=== PATIENT | male | born 1970 | race Caucasian/White ===

== ENCOUNTER → 2016-11-29 | Outpatient (CLI) | payer OTHER ==
[~2016-11-29] MED LIST: ALDACTONE25 MG PO; ATARAX25 MG PO; AUGMENTIN 875875 MG PO; BENADRYL ALLERG25 M5 PO; BENADRYL50 MG PO; BUMETANIDE1 MG PO; CARVEDILOL3.125 MG PO; CIPRO500 MG PO; COREG3.125 MG PO; DIGOX0.125 MG PO; DIGOX0.25 MG PO; FLOMAX0.4 MG PO; FLONASE ALLERG9.9 ML NS; FUROSEMIDE40 MG PO; HYDROCODONE BIT1 T11 PO; KENALOG0.1% TP; LIDEX0.05% T; LISINOPRIL2.5 MG PO; LISINOPRIL5 MG PO; MEDROL DOSEPAK4 MG PO; Motrin,Rufen800 MG PO; OMEPRAZOLE MAGN20 MG PO; PREDNICOT20 MG PO; PREDNISONE10 MG PO; PRISTIQ50 MG PO; VICO10300 PO; VISTARIL25 M1 PO; ZOFRAN ODT4 MG SL
== END | disposition home or self-care (01) ==
LOC: US 11-27 13:30
DX: M79.672 Pain in left foot (principal); I42.8 Other cardiomyopathies; E66.9 Obesity, unspecified; M79.661 Pain in right lower leg; M79.662 Pain in left lower leg; M79.671 Pain in right foot

== ENCOUNTER 2017-10-04 07:18 | Inpatient (IN) | payer OTHER, MEDICAID ==
[2017-10-04] VITALS (8 sets, daily range): BP systolic 125–158; BP diastolic 65–94
[~2017-10-04] VITALS: Ht 165.1 cm; Wt 146.3 kg
--- NOTE | ~2017-10-04 | PR ---
[place], [place] PROGRESS NOTE NAME: CAPO CARRANZA UNIT #: [id number] ROOM: 531 DOCTOR: BROOKE LEO,JULIET BIRTHDATE: [birth year] DOS: 10/07/2017 REASON FOR VISIT: CHF. HISTORY OF PRESENT ILLNESS: The patient is feeling better. He wanted to go home. Breathing is much better. He is ambulating without much shortness of breath. No PND, no orthopnea. No chest pain, no dizziness. He is tolerating Bumex well. REVIEW OF SYSTEMS: Review of the 8 systems negative except as mentioned above. RHYTHM STRIPS: The patient was ventricular pacing on the monitor. PHYSICAL EXAMINATION: VITAL SIGNS: Blood pressure 124/77, pulse 77, respiratory rate is 20. Weight 146.2 kilos. GENERAL: Alert, comfortable, in no acute distress. HEENT: Pupils are round and equal. No jaundice. NECK: Supple, no distended neck veins, no carotid bruit. CHEST: Symmetrical, nontender. ICD site is unremarkable. LUNGS: A few scattered rhonchi, diminished at bases. HEART: Regular rhythm, no S3. Grade 1/6 systolic murmur. ABDOMEN: Obese, nontender. Bowel sounds normal. EXTREMITIES: Showed trace to 1+ edema. Distal pulses are palpable. SKIN: Warm and dry. No cyanosis, no clubbing. RECTAL: Deferred. GENITOURINARY: Deferred. Medications reviewed and the labs reviewed. IMPRESSION: 1. Acute on chronic systolic heart failure, the patient is improving. 2. Status post biventricular ICD implant in 2014. 3. Hypertension, stable. 4. Morbid obesity. RECOMMENDATIONS: 1. Continue current medications including Coreg, Cozaar, and Aldactone. 2. Change her Bumex to p.o. 1 mg twice a day tomorrow. 3. The patient would like to go home today. If he is being discharged today, change Bumex to p.o. 1 mg twice a day today. 4. Follow up with [facility] per his request in 1-2 weeks, consider referring him to advanced heart failure, Dr. Das. There is no family at bedside. [place], [place] PROGRESS NOTE NAME: CAPO CARRANZA UNIT #: [id number] ROOM: 531 DOCTOR: JULIET COX MD BIRTHDATE: [birth year] JULIET COX MD CM:RILEY [id number] JULIET COX MD 10/08/176 interface
[2017-10-04 07:59] LABS: HEMATOCRIT 41.3 % (42.0-52.0); HEMOGLOBIN 13.6 g/dl (14.0-18.0); MEAN CORPUSCULAR HGB CONC 32.9 g/dl (33.0-37.0); MEAN PLATELET VOLUME 9.6 fl (9.6-12.3); PLATELET COUNT AUTOMATED 201 10*3/uL (130-400); RED BLOOD COUNT 4.54 10*6/uL (4.50-5.90); RED CELL DISTRI WIDTH 13.2 % (0-14.5); WHITE BLOOD COUNT 12.6 10*3/uL (4.8-10.8)
[2017-10-04 08:17] LABS: BASOPHILS 1 % (0-1); PLATELET SUFFICIENCY NORMAL (NORMAL); TOTAL CELLS COUNTED 100 #CELLS
[2017-10-04 08:18] LABS: ALBUMIN 3.3 gm/dl (3.1-4.5); ALKALINE PHOSPHATASE 90 U/L (45-117); BUN 12 mg/dl (7-24); CHLORIDE 105 mmol/L (98-107); CREATININE 0.91 mg/dL (0.70-1.30); POTASSIUM 4.5 mmol/L (3.5-5.1); SGOT/AST 65 IU/L (3-35); SGPT/ALT 39 U/L (12-78); SODIUM 138 mmol/L (136-145); TOTAL PROTEIN 7.1 gm/dL (6.4-8.2)
[2017-10-04 08:26] LABS: TROPONIN I 0.056 ng/ml (<0.045)
[2017-10-04] MEDS ORDERED: LOPID600 M1 PO (10:51)
[2017-10-04] MEDS ORDERED: CITALOPRAM20 MG PO (10:51)
[2017-10-04] MEDS ORDERED: ATIVAN0.5 MG PO (10:58)
[2017-10-05] VITALS: BP 112/80
[2017-10-05 06:46] LABS: HEMATOCRIT 42.3 % (42.0-52.0); HEMOGLOBIN 13.8 g/dl (14.0-18.0); MEAN CORPUSCULAR HGB 29.7 pg (27.0-31.0); MEAN CORPUSCULAR HGB CONC 32.6 g/dl (33.0-37.0); MEAN PLATELET VOLUME 9.6 fl (9.6-12.3); PLATELET COUNT AUTOMATED 231 10*3/uL (130-400); RED BLOOD COUNT 4.65 10*6/uL (4.50-5.90); RED CELL DISTRI WIDTH 13.4 % (0-14.5); WHITE BLOOD COUNT 15.4 10*3/uL (4.8-10.8)
[2017-10-05 07:09] LABS: PLATELET SUFFICIENCY NORMAL (NORMAL); TOTAL CELLS COUNTED 100 #CELLS
[2017-10-05 07:11] LABS: ALBUMIN 3.5 gm/dl (3.1-4.5); BUN 16 mg/dl (7-24); CHLORIDE 98 mmol/L (98-107); CHOLESTEROL 122 mg/dL (<200); CREATININE 1.11 mg/dL (0.70-1.30); HDL CHOLESTEROL 26 mg/dl (40-60); LDL CHOLESTEROL 37 mg/dL (9-159); PHOSPHOROUS 4.3 mg/dL (2.5-4.9); POTASSIUM 3.9 mmol/L (3.5-5.1); SGOT/AST 37 IU/L (3-35); SGPT/ALT 36 U/L (12-78); SODIUM 137 mmol/L (136-145); TRIGLYCERIDES 295 mg/dl (<150); VLDL CHOLESTEROL 59 mg/dL (6-40)
[2017-10-05 07:21] LABS: ALKALINE PHOSPHATASE 76 U/L (45-117); FREE T4 1.06 ng/dl (0.76-1.46); TOTAL PROTEIN 7.2 gm/dL (6.4-8.2)
[2017-10-05 08:00] VITALS: BP 122/62
[2017-10-05 08:17] LABS: VITAMIN D, 25-HYDROXY 15.9 ng/mL (30-100)
[2017-10-05 12:00] VITALS: BP 118/72
[2017-10-05 16:00] VITALS: BP 133/65
[2017-10-05 20:00] VITALS: BP 111/43
[2017-10-06] VITALS: BP 109/55
[2017-10-06 06:02] LABS: HEMATOCRIT 40.5 % (42.0-52.0); HEMOGLOBIN 13.6 g/dl (14.0-18.0); MEAN CELL VOLUME 90.2 fl (80.0-94.0); MEAN CORPUSCULAR HGB 30.3 pg (27.0-31.0); MEAN CORPUSCULAR HGB CONC 33.6 g/dl (33.0-37.0); MEAN PLATELET VOLUME 9.5 fl (9.6-12.3); PLATELET COUNT AUTOMATED 225 10*3/uL (130-400); RED BLOOD COUNT 4.49 10*6/uL (4.50-5.90); RED CELL DISTRI WIDTH 13.4 % (0-14.5); WHITE BLOOD COUNT 15.5 10*3/uL (4.8-10.8)
[2017-10-06 06:19] LABS: BUN 22 mg/dl (7-24); CHLORIDE 97 mmol/L (98-107); CREATININE 0.93 mg/dL (0.70-1.30); POTASSIUM 3.7 mmol/L (3.5-5.1); SODIUM 136 mmol/L (136-145)
[2017-10-06 06:28] LABS: BASOPHILS 1 % (0-1); PLATELET SUFFICIENCY NORMAL (NORMAL); TOTAL CELLS COUNTED 100 #CELLS
[2017-10-06 08:00] VITALS: BP 114/67
[2017-10-06 12:00] VITALS: BP 113/71
[2017-10-06 16:00] VITALS: BP 102/64
[2017-10-06 20:00] VITALS: BP 121/70
[2017-10-07] VITALS: BP 105/45
[2017-10-07 06:21] LABS: HEMATOCRIT 42.3 % (42.0-52.0); HEMOGLOBIN 13.9 g/dl (14.0-18.0); MEAN CELL VOLUME 92.2 fl (80.0-94.0); MEAN CORPUSCULAR HGB 30.3 pg (27.0-31.0); MEAN CORPUSCULAR HGB CONC 32.9 g/dl (33.0-37.0); MEAN PLATELET VOLUME 9.4 fl (9.6-12.3); PLATELET COUNT AUTOMATED 252 10*3/uL (130-400); RED BLOOD COUNT 4.59 10*6/uL (4.50-5.90); RED CELL DISTRI WIDTH 13.6 % (0-14.5); WHITE BLOOD COUNT 17.3 10*3/uL (4.8-10.8)
[2017-10-07 06:44] LABS: BUN 23 mg/dl (7-24); CHLORIDE 97 mmol/L (98-107); CREATININE 1.09 mg/dL (0.70-1.30); POTASSIUM 3.7 mmol/L (3.5-5.1); SODIUM 136 mmol/L (136-145)
[2017-10-07 07:11] LABS: ATYPICAL LYMPHS 1 % (0-0); PLATELET SUFFICIENCY NORMAL (NORMAL); TOTAL CELLS COUNTED 100 #CELLS
[2017-10-07 08:00] VITALS: BP 124/77
[2017-10-07 12:00] VITALS: BP 109/63
[2017-10-07] MEDS ORDERED: COZAAR100 MG PO (15:30)
[2017-10-07] MEDS ORDERED: BUMETANIDE1 MG PO (15:30)
[2017-10-07] MEDS ORDERED: ASPIRIN ADULT L81 M2 PO (15:30)
[2017-10-07] MEDS ORDERED: ALDACTONE25 MG PO (15:30)
[2017-10-07] MEDS ORDERED: CARVEDILOL25 MG PO (15:30)
[2017-10-07] MEDS ORDERED: ATORVASTATIN CA40 M1 PO (15:30)
[2017-10-07 16:00] VITALS: BP 105/58
== END 2017-10-07 16:49 | disposition home or self-care (01) | DRG 292 ==
LOC: ED 07:18 → EDHOLD 09:13 → 5E 09:13
PROVIDERS: Emergency Medicine; Registered Nurse; Student in an Organized Health Care Education/Training Program
DX: I11.0 Hypertensive heart disease with heart failure (principal); R65.10 Systemic inflammatory response syndrome (SIRS) of non-infectious origin without acute organ dysfunction; I42.9 Cardiomyopathy, unspecified; E66.01 Morbid (severe) obesity due to excess calories; Z68.43 Body mass index [BMI] 50.0-59.9, adult; F41.1 Generalized anxiety disorder; J44.9 Chronic obstructive pulmonary disease, unspecified; E78.2 Mixed hyperlipidemia; I34.0 Nonrheumatic mitral (valve) insufficiency; I50.23 Acute on chronic systolic (congestive) heart failure; M19.90 Unspecified osteoarthritis, unspecified site; K21.9 Gastro-esophageal reflux disease without esophagitis; Z95.810 Presence of automatic (implantable) cardiac defibrillator; Z88.8 Allergy status to other drugs, medicaments and biological substances; Z79.899 Other long term (current) drug therapy; Z80.9 Family history of malignant neoplasm, unspecified; Z84.1 Family history of disorders of kidney and ureter; Z82.49 Family history of ischemic heart disease and other diseases of the circulatory system

== ENCOUNTER 2018-04-26 07:06 | Emergency (ER) | payer OTHER, MEDICAID ==
[~2018-04-26] VITALS: Ht 165.1 cm; Wt 133.8 kg
[~2018-04-26 07:06] MED LIST changes: +ASPIRIN ADULT L81 M2 PO; +ATIVAN0.5 MG PO; +ATORVASTATIN CA40 M1 PO; +CARVEDILOL25 MG PO; +CITALOPRAM20 MG PO; +COZAAR100 MG PO; +LOPID600 M1 PO
[2018-04-26] MEDS ORDERED: Motrin,Rufen800 MG PO (08:42)
== END 2018-04-26 08:47 | disposition home or self-care (01) ==
LOC: ED 07:06
DX: S96.912A Strain of unspecified muscle and tendon at ankle and foot level, left foot, initial encounter (principal); S93.402A Sprain of unspecified ligament of left ankle, initial encounter; E66.01 Morbid (severe) obesity due to excess calories; I11.0 Hypertensive heart disease with heart failure; I50.20 Unspecified systolic (congestive) heart failure; J44.9 Chronic obstructive pulmonary disease, unspecified; M13.859 Other specified arthritis, unspecified hip; Z79.899 Other long term (current) drug therapy; Z88.8 Allergy status to other drugs, medicaments and biological substances; W22.8XXA Striking against or struck by other objects, initial encounter; Y93.89 Activity, other specified; Y92.89 Other specified places as the place of occurrence of the external cause; Y99.8 Other external cause status

== ENCOUNTER → 2019-01-29 | Outpatient (CLI) | payer OTHER, MEDICAID | END | disposition home or self-care (01) | LOC: RAD 08:23 | DX: R20.2 Paresthesia of skin (principal); M47.812 Spondylosis without myelopathy or radiculopathy, cervical region ==

== ENCOUNTER 2019-06-10 22:38 | Inpatient (IN) | payer OTHER, MEDICAID ==
[~2019-06-10] VITALS: Ht 167.6 cm; Wt 153.1 kg
[~2019-06-10 22:38] MED LIST changes: -CITALOPRAM20 MG PO; +CITALOPRAM40 MG PO
[2019-06-10 22:43] VITALS: BP 133/70
[2019-06-10 23:11] LABS: HEMATOCRIT 46.9 % (42.0-52.0); HEMOGLOBIN 15.1 g/dl (14.0-18.0); MEAN CELL VOLUME 90.9 fl (80.0-94.0); MEAN CORPUSCULAR HGB 29.3 pg (27.0-31.0); MEAN CORPUSCULAR HGB CONC 32.2 g/dl (33.0-37.0); MEAN PLATELET VOLUME 9.5 fl (9.6-12.3); PLATELET COUNT AUTOMATED 263 10*3/uL (130-400); RED BLOOD COUNT 5.16 10*6/uL (4.50-5.90); RED CELL DISTRI WIDTH 13.9 % (0-14.5); WHITE BLOOD COUNT 18.4 10*3/uL (4.8-10.8)
[2019-06-10 23:27] LABS: ALBUMIN 3.5 gm/dl (3.1-4.5); ALKALINE PHOSPHATASE 111 U/L (45-117); BUN 25 mg/dl (7-24); CHLORIDE 103 mmol/L (98-107); SGOT/AST 132 IU/L (3-35); SGPT/ALT 63 U/L (12-78); SODIUM 136 mmol/L (136-145); TOTAL PROTEIN 7.2 gm/dL (6.4-8.2)
[2019-06-10 23:30] LABS: TROPONIN I 0.051 ng/ml (<0.045)
[2019-06-10 23:31] VITALS: BP 120/68
[2019-06-10 23:31] LABS: PLATELET SUFFICIENCY NORMAL (NORMAL); POLYCHROMASIA SLIGHT; TOTAL CELLS COUNTED 100 #CELLS
[2019-06-11] VITALS (10 sets, daily range): BP systolic 100–146; BP diastolic 63–93
--- NOTE | 2019-06-11 | NUR ---
NOTED ON [employer] METEOROLOGICAL MAN THE PATIENTS HEART RATE WAS AT 42. THEN 36. THE MD MADE AWARE. THE PATIENT REMAINS AWAKE ALERT AND ORIENTED AT THE TIME DENIES ANY CHEST PAIN OR SOB. TERRIE DIXON RN. 0010 PT PLACED ON 3 LITERS NC DUE TO THE PATIENT DOZES OFF AND PULSE OX DROPS TO 87%. THE PATIENT STATES HE IS UNABLE TO TOLERATE THE NC STATES IT NAKES HIM ANXIOUS. AND TOOK IT OFF. TERRIE DIXON RN.
--- NOTE | 2019-06-11 00:20 | NUR ---
[employer] REP NOTIFIED DUE TO PT'S HEARTRATE DROPPING INTO THE 30'S DESPITE HAVING A PACEMAKER.---RICHARD DURAN RN
--- NOTE | 2019-06-11 00:27 | NUR ---
[employer]ENT[employer] PACER REP IS BEING NOTIFIED TO INTERROGATE THIS PT'S PACER---RICHARD DURAN RN
--- NOTE | 2019-06-11 00:54 | NUR ---
SCHOOL BUS INSPECTOR CONTACTED AND PROVIDED MEDICATION OF BUMEX AND ROCEPHIN.
--- NOTE | 2019-06-11 01:30 | NUR ---
A 49 YEAR OLD MALE admitted to ICCU, under the services of LOLLY Stone DO with a diagnosis of CHF. Chief complaint is VERTIGO AT HOME, DENIES SOB. Patient arrived via stretcher from ER. Monitor applied. Initial assessment completed. Vital signs taken and recorded. LOLLY STONE DO notified of admission to the unit. Orders received. See assessment for past medical history, medications and allergies. Patient and/or family oriented to unit. [facility] visitation policy reviewed. Clothing/patient valuable form completed. CHARLI GIRON
--- NOTE | 2019-06-11 01:44 | NUR ---
0130 DR ALEX MADE AWARE THE PATIENT CANNOT LAY DOWN AT THIS TIME FOR HTE CAT SCAN . TERRIE DIXON RN.
--- NOTE | 2019-06-11 02:17 | NUR ---
UP IN RECLINER CHAIR PER REQUEST. PLACED ON 02 AT 2L VIA NC. PT FALLS ASLEEP CONSTANTLY IN THE MIDDLE OF TALKING. IS TO HAVE SLEEP STUDIES SOON AND SEE DR. POON. PT ADMITS TO HAVING A "RASH" IN THE GROIN AREA. STRONG ODOR OF YEAST NOTED. WILL NOT REMOVE PANTS TO LET RN VIEW. CALL LIGHT IN REACH.
--- NOTE | 2019-06-11 03:19 | NUR ---
REMAINS IN RECLINER CHAIR AT BEDSIDE. TALKING TO HIMSELF. HAD 02 TUBING WRAPPED AROUND HIS HEAD. BLOOD NOTED ON RIGHT HAND. (IV SITE AMBER INFILTRATED EARLIER). PT HAD PULLED IV OUT OF R HAND. STATES " I DON'T KNOW WHAT I WAS DOING". ALERT AND ORIENTED. STATES " I DO THIS KIND OF STUFF AT HOME, TOO." NEW IV STARTED RH WITH #22 ANGIO. STERILE DRSG TO SITE. FLUSHES WELL. WRAPPTED WITH KERLIX. BODY ALARM APPLIED FOR PT SAFETY. SUB Q LOVENOX GIVEN ORDERED.
--- NOTE | 2019-06-11 03:36 | NUR ---
PT ALSO REFUSED PICTURES OF GROIN RASH EARLIER.
--- NOTE | 2019-06-11 03:39 | NUR ---
DR. ALEX MADE AWARE EARLIER PT STATING HE HAS A RASH IN THE GROIN AREA, THAT SMELLS OF YEAST, AND THAT PT REFUSES PICTURES OR TO LET RN VIEW. DR. ALEX SHOWED ER STRIPS OF ALLEGED HR IN THE 20-40'S. PLACED ON CHART. U CALLED AND LEFT MESSAGE REGARDING CONSULT.
--- NOTE | 2019-06-11 04:06 | NUR ---
PT UP TO BSC WITH 1 ASSIST. UNSTEADY. VOIDED 250 CC CONCENTRATED REGIS URINE. BACK TO CHAIR.
[2019-06-11 05:25] LABS: ALBUMIN 3.7 gm/dl (3.1-4.5); ALKALINE PHOSPHATASE 107 U/L (45-117); BUN 26 mg/dl (7-24); CHLORIDE 105 mmol/L (98-107); CHOLESTEROL 97 mg/dL (<200); HDL CHOLESTEROL 22 mg/dl (40-60); LDL CHOLESTEROL 51 mg/dL (9-159); PHOSPHOROUS 4.9 mg/dL (2.5-4.9); POTASSIUM 3.8 mmol/L (3.5-5.1); SGOT/AST 165 IU/L (3-35); SGPT/ALT 73 U/L (12-78); SODIUM 138 mmol/L (136-145); TOTAL PROTEIN 7.5 gm/dL (6.4-8.2); TRIGLYCERIDES 118 mg/dl (<150); VLDL CHOLESTEROL 24 mg/dL (6-40)
[2019-06-11 05:26] LABS: FREE T4 1.34 ng/dl (0.76-1.46)
--- NOTE | 2019-06-11 05:36 | NUR ---
7044 DR. JOHNSON CALLED WITH CONSULT. ORDERS RECEIVED.
[2019-06-11 06:06] LABS: HEMATOCRIT 46.5 % (42.0-52.0); HEMOGLOBIN 15.1 g/dl (14.0-18.0); MEAN CORPUSCULAR HGB 29.5 pg (27.0-31.0); MEAN CORPUSCULAR HGB CONC 32.5 g/dl (33.0-37.0); MEAN PLATELET VOLUME 10.3 fl (9.6-12.3); PLATELET COUNT AUTOMATED 240 10*3/uL (130-400); RED BLOOD COUNT 5.11 10*6/uL (4.50-5.90); RED CELL DISTRI WIDTH 13.9 % (0-14.5); WHITE BLOOD COUNT 18.6 10*3/uL (4.8-10.8)
--- NOTE | 2019-06-11 06:08 | NUR ---
CAPO CARRANZA [id number] Please refer to the physician's history and physical for past medical history, comorbid conditions, and allergies. Diagnosis: CHF,NSTEMI,PACEMAKER COMPLICATIONS Hao Score: 20,LOW OR NO RISK WOUND DESCRIPTIONS: This nurse went to evaluate patient for skin impairment noted to groin patient refused assessment at this time. Musty odor noted at time of assessment per nurse caring for patient. Surface the patient is resting on: Isoflex SKIN PREVENTION RECOMMENDATION: 1. Pressure redistribution support surface as appropriate 2. Elevate heels 3. Remove boots/TEDS every shift and reapply 4. Head of bed 30 degrees as tolerated 5. Assess nutrition and hydration 6. Manage moisture 7. Avoid the use of containment devices while in bed 8. Use absorptive products on surfaces limit layers of linens on bed 9. Turn and reposition every 1-2 hours in bed and every 1 hour in chair as tolerated 10. Weight shifts every 15 minutes while up in chair 11. Offloading with pillows or device to keep heels elevated off bed 12. Monitor skin at least every shift 13. Inspect under medical devices twice a day WOUND TREATMENT RECOMMENDATIONS: Nystatin powder was ordered by the provider for every 12 hours.
[2019-06-11 06:22] LABS: ACT PARTIAL THROMBO TIME 30.4 SECONDS (20.0-32.1); INTERNATIONAL NORM RATIO 1.1 (2.0-3.5)
--- NOTE | 2019-06-11 06:23 | NUR ---
PT REMAINS SLEEPING IN RECLINER CHAIR. PT IS SOMNOLENT. TWITCHES AND TALKS TO SELF. PT MOVES ABOUT CONSTANTLY IN THE CHAIR. BED PLACED IN FRONT OF PT CHAIR TO PREVENT HIM FROM FALLING FORWARD. 02 INTACT. HEP LOCK INTACT. MONITOR REMAINS 100% PACED RHYTHM. BODY ALARM INTACT. CONDITION GUARDED.
[2019-06-11 07:01] LABS: ATYPICAL LYMPHS 1 % (0-0); TOTAL CELLS COUNTED 100 #CELLS
[2019-06-11 07:02] LABS: PLATELET SUFFICIENCY NORMAL (NORMAL)
--- NOTE | 2019-06-11 07:15 | NUR ---
DR LOWE IN TO SEE PT. UPDATED HIM ON PT'S CONDITION AND PLAN OF CARE. NO NEW ORDERS AT THIS TIME.
[2019-06-11 07:46] LABS: VITAMIN D, 25-HYDROXY 53.4 ng/mL (30-100)
[2019-06-11 07:55] LABS: ABG BASE EXCESS -1.7 mmol/L (-2.0-2.0); ARTERIAL BLOOD GAS PH 7.385 (7.35-7.45)
--- NOTE | 2019-06-11 08:32 | NUR ---
PT RETURNED FROM CT AND ULTRASOUND VIA WC.
[2019-06-11] MEDS ORDERED: NAPROXEN500 MG PO (09:06)
[2019-06-11] MEDS ORDERED: ALDACTONE25 MG PO (09:07)
[2019-06-11] MEDS ORDERED: VIT D PO (09:14)
[2019-06-11] MEDS ORDERED: VASCEPA1 G1 PO (09:15)
[2019-06-11] MEDS ORDERED: ZYRTEC10 M3 PO (09:16)
[2019-06-11] MEDS ORDERED: LOSARTAN POTAS100 M1 PO (09:17)
--- NOTE | 2019-06-11 09:17 | NUR ---
DR WHALEN IN TO SEE PT.
[2019-06-11] MEDS ORDERED: CRESTOR40 M1 PO (09:20)
--- NOTE | 2019-06-11 10:49 | NUR ---
Dr. Vázquez notified of wound care recommendations.
--- NOTE | 2019-06-11 11:21 | NUR ---
TEREADRIEL [id number] Please refer to the physician's history and physical for past medical history, comorbid conditions, and allergies. Diagnosis: CHF,NSTEMI,PACEMAKER COMPLICATIONS Hao Score: 20,LOW OR NO RISK WOUND DESCRIPTIONS: WOUND #1 RIGHT GROIN/THIGH/ABD FOLD RED WITH MUSTY ODOR NOTED AT TIME OF ASSESSMENT. UNABLE TO OBTAIN ACCURATE MEASUREMENTS DUE TO PATIENT WAS FALLING ASLEEP DURING ASSESSMENT. UNABLE TO ASSESS LEFT SIDE GROIN AT THIS TIME. Wound Number: 2 Location of the wound: LEFT ANTERIOR LOWER LEG Type of wound: TRAUMATIC Thickness: Full Size: 1cm X 1.2cm X 0.1cm Tunneling: NONE Undermining: NONE Sinus Tract: NONE Presence of Exudate: Serous Amount: Light Color: Yellow Odor: None Periwound Skin Appearance: Edema Wound edges: APPROXIMATED Pain (associated with wound): DENIED AT TIME OF ASSESSMENT How does patient state this happened? NURSE CARING FOR PATIENT STATES THE PATIENT STATED HE HIT THIS AREA WHEN HE FELL AT HOME. Surface the patient is resting on: Isoflex SKIN PREVENTION RECOMMENDATION: 1. Pressure redistribution support surface as appropriate 2. Elevate heels 3. Remove boots/TEDS every shift and reapply 4. Head of bed 30 degrees as tolerated 5. Assess nutrition and hydration 6. Manage moisture 7. Avoid the use of containment devices while in bed 8. Use absorptive products on surfaces limit layers of linens on bed 9. Turn and reposition every 1-2 hours in bed and every 1 hour in chair as tolerated 10. Weight shifts every 15 minutes while up in chair 11. Offloading with pillows or device to keep heels elevated off bed 12. Monitor skin at least every shift 13. Inspect under medical devices twice a day WOUND TREATMENT RECOMMENDATIONS: FULL THICKNESS GUIDELINES LEFT ANTERIOR LOWER LEG: CLEANSE WITH NSS APPLY SUREPREP AROUND THE WOUND BED ALLOW TO DRY APPLY THERAHONEY TO WOUND BED COVER WITH OPTIFOAM GENTLE. CHANGE EVERY 2 DAYS AND PRN SOILING. DRESSING CHANGE: CLEANSE GROIN AND FOLDS WITH SOAP AND WATER. CONTINUE NYSTATIN POWDER TO GROIN AND FOLDS.
--- NOTE | 2019-06-11 11:36 | NUR ---
Dr. Vázquez notified of wound care recommendations to left anterior lower leg.
--- NOTE | 2019-06-11 12:04 | NUR ---
MAEGAN,WOUND CARE NURSE, HERE TO SEE PT. SHE UPDATED DR REBOLLEDO OF WOUNDS. ECHO AND PACEMAKER INTEROGATION COMPLETED. PACEMEAKER IS WORKING CORRECTLY, NO EVENTS REPORTED PER PACEMAKER INTEROGATOR. PT REMAINS SITTING IN THE CHAIR. PT FALLS ASLEEP REPEATEDLY EVEN WHILE TALKING. SHORT PDS OF APNEA NOTED WHEN PT IS ALSEEP.
--- NOTE | 2019-06-11 15:10 | NUR ---
PT IS AWAKE AND ALERT. PT IS TALKING WITH HIS BROTHER ON THE PHONE. PT DENIES COMPLAINTS AT PRESENT TIME. NO ACUTE DISTRESS NOTED.
--- NOTE | 2019-06-11 15:50 | NUR ---
PHYSICAL THERAPY Screen received pt from home admit [facility] CHF sycopal episodes w multiple falls pt would benefit from PT eval to assess mobility and safety. Kamala Lamar PT
--- NOTE | 2019-06-11 16:37 | NUR ---
PT SITTING IN THE CHAIR. VSS. PT DENIES COMPLAINTS. NO ACUTE DISTRESS NOTED.
--- NOTE | 2019-06-11 17:36 | NUR ---
PT'S FAMILY IN TO VISIT. UPDATED THEM ON PT'S CONDITION. THEIR QUESTIONS WERE ANSWERED.
--- NOTE | 2019-06-11 20:07 | NUR ---
PT WAS UP TO BSC TO VOID AND A MUSHY BROWN STOOL. HE RETURNS TO RECLINER OBSERVED WITH STEADY GAIT. HE IS AOX3. HE DID AWAKEN EASILY TO VERBAL STIMULI. HE HAD HIS O2 OFF AND WAS 98% ON RA. HIS VS REMAIN STABLE WITH BP MEASUREMENT TAKEN MANUALLY. GRAPE JUICE GIVEN PER PT REQUEST, CALL LIGHT AND BELONGINGS/TV TRAY IN REACH.
--- NOTE | 2019-06-11 23:50 | NUR ---
Pt placed on nocturnal. Started on room air. SpO2 95% HR 60
[2019-06-12] VITALS: BP 104/60
--- NOTE | 2019-06-12 03:37 | NUR ---
AWAKE, TALKATIVE, ALERT & ORIENTED, JOKING.
--- NOTE | 2019-06-12 03:45 | NUR ---
Checked in on patient on nocturnal. Pt is sleeping up in the chair still. SpO2 remains at 93% on room air. Nurses say they have heard the alarm but only for disconnect when pt gets up to use the restroom.
[2019-06-12 04:00] VITALS: BP 91/48
[2019-06-12 05:48] LABS: ALBUMIN 3.2 gm/dl (3.1-4.5); ALKALINE PHOSPHATASE 96 U/L (45-117); BUN 35 mg/dl (7-24); CHLORIDE 105 mmol/L (98-107); CREATININE 1.22 mg/dL (0.70-1.30); POTASSIUM 3.2 mmol/L (3.5-5.1); SGOT/AST 52 IU/L (3-35); SGPT/ALT 49 U/L (12-78); SODIUM 139 mmol/L (136-145); TOTAL PROTEIN 6.7 gm/dL (6.4-8.2)
[2019-06-12 05:58] LABS: BASO # 0.1 10*3/uL (0.0-0.1); BASO % 0.5 % (0.0-1.0); EOS # 0.5 10*3/uL (0.0-0.4); EOS % 3.8 % (1.0-4.0); HEMATOCRIT 42.4 % (42.0-52.0); HEMOGLOBIN 13.4 g/dl (14.0-18.0); LYMPH % 15.7 % (27.0-41.0); MEAN CELL VOLUME 91.6 fl (80.0-94.0); MEAN CORPUSCULAR HGB 28.9 pg (27.0-31.0); MEAN CORPUSCULAR HGB CONC 31.6 g/dl (33.0-37.0); MEAN PLATELET VOLUME 10.3 fl (9.6-12.3); NEUT # 9.3 10*3/uL (2.3-7.9); NEUT % 71.5 % (47.0-73.0); PLATELET COUNT AUTOMATED 207 10*3/uL (130-400); RED BLOOD COUNT 4.63 10*6/uL (4.50-5.90); RED CELL DISTRI WIDTH 13.9 % (0-14.5)
[2019-06-12 08:00] VITALS: BP 102/64
--- NOTE | 2019-06-12 08:00 | NUR ---
TO RECLINER AFTER USING BSC INDEPENDENTLY, ALERT AND ORIENTED, PLEASANT, COOPERATIVE, HEP LOCK TO RAC, WOUND TO L CARRANZA DRESSED, GRION RASH DEENA TREATED WITH NYSTATIN POWDER, RESP EASY, 100 % PACED ON MONITOR
--- NOTE | 2019-06-12 09:43 | NUR ---
TRANSFERRED TO 530
[2019-06-12 12:00] VITALS: BP 91/72
--- NOTE | 2019-06-12 12:02 | NUR ---
Nutritional Support Services Note: Discussing diet with pt. Pt is currently on a cardiac diet. He has a good understanding of his diet. He state he has lost 159# this past year. Has been trying to eat healthy. Ht.5'6 Wt.341#. Pt has a rash to groin. Encouraged continued weight loss goals, and healthy eating. Discussed proper portion sizes. No other recommendations at this time. Encouraged follow up if needed. Serena Cunningham Rdn Ld
[2019-06-12 14:41] LABS: BILIRUBIN NEGATIVE (NEGATIVE); BLOOD NEGATIVE (NEGATIVE); CLARITY CLEAR (CLEAR); COLOR YELLOW (YELLOW); GLUCOSE NEGATIVE (NEGATIVE); KETONE NEGATIVE (NEGATIVE); LEUKO ESTERASE 1+ (NEGATIVE); NITRITE NEGATIVE (NEGATIVE); UROBILINOGEN 0.2 E.U./dl (0.2-1.0)
[2019-06-12 14:42] LABS: BACTERIA TRACE
--- NOTE | 2019-06-12 14:47 | NUR ---
Book Cutter in to talk to patient. Patient states lives at home with his and son. There are 15 steps in the home. Physician: Elinor Levine and Dr. Bautista Pharmacy: [facility] Home health services: none Patient's level of ADLs: INDEPENDENT Patient has working utilities: yes DME: cane Follow-up physician's appointment after d/c: will be made by the hospitalist nurse director upon discharge Does patient want to access PORTAL?: no Discharge plan discussed with patient. He lives at home with his family. He is independent in his ADLs and occasionally ambulates with a cane for balance. Discussed home health care services and he denies any home needs at this time. When medically stable he will be discharged to home. He states his will provide transportation on discharge. ILENE PHILLIPS
[2019-06-12 16:00] VITALS: BP 106/78
[2019-06-12 20:00] VITALS: BP 112/74
--- NOTE | 2019-06-12 20:34 | NUR ---
24 HR chart check completed.
[2019-06-13 01:00] VITALS: BP 130/84
[2019-06-13 06:20] LABS: BASO # 0.1 10*3/uL (0.0-0.1); BASO % 0.7 % (0.0-1.0); EOS # 0.4 10*3/uL (0.0-0.4); EOS % 4.2 % (1.0-4.0); HEMATOCRIT 43.3 % (42.0-52.0); HEMOGLOBIN 13.7 g/dl (14.0-18.0); LYMPH % 19.2 % (27.0-41.0); MEAN CELL VOLUME 92.9 fl (80.0-94.0); MEAN CORPUSCULAR HGB 29.4 pg (27.0-31.0); MEAN CORPUSCULAR HGB CONC 31.6 g/dl (33.0-37.0); MEAN PLATELET VOLUME 10.8 fl (9.6-12.3); MONO # 1.2 10*3/uL (0.1-1.0); MONO % 11.8 % (3.0-9.0); NEUT # 6.7 10*3/uL (2.3-7.9); NEUT % 63.7 % (47.0-73.0); PLATELET COUNT AUTOMATED 238 10*3/uL (130-400); RED BLOOD COUNT 4.66 10*6/uL (4.50-5.90); WHITE BLOOD COUNT 10.5 10*3/uL (4.8-10.8)
[2019-06-13 06:43] LABS: ALBUMIN 3.3 gm/dl (3.1-4.5); BUN 37 mg/dl (7-24); CHLORIDE 106 mmol/L (98-107); CREATININE 1.16 mg/dL (0.70-1.30); SGOT/AST 40 IU/L (3-35); SGPT/ALT 48 U/L (12-78); SODIUM 138 mmol/L (136-145)
[2019-06-13 06:45] LABS: ALKALINE PHOSPHATASE 93 U/L (45-117); TOTAL PROTEIN 7.1 gm/dL (6.4-8.2)
[2019-06-13 06:53] LABS: POTASSIUM 4.3 mmol/L (3.5-5.1)
--- NOTE | 2019-06-13 07:00 | NUR ---
ARRIVED ON SHIFT, INTRODUCED TO PATIENT, BED IN LOW LOCKED POSITION, WHEEL LOCKS ENGAGED, CALL LIGHT WITHIN REACH, NO NEEDS VOICED AT THIS TIME, WHITE BOARD UPDATED.
--- NOTE | 2019-06-13 07:31 | NUR ---
Shift chart check completed.
[2019-06-13 08:00] VITALS: BP 110/60
[2019-06-13 12:00] VITALS: BP 107/69
[2019-06-13 16:00] VITALS: BP 124/61
[2019-06-13 20:00] VITALS: BP 94/64
--- NOTE | 2019-06-13 20:00 | NUR ---
24 HOUR CHART CHECK COMPLETE
[2019-06-14] VITALS: BP 93/55
--- NOTE | 2019-06-14 07:10 | NUR ---
ARRIVED ON SHIFT, INTRODUCED TO PATIENT, PATIENT SITTING ON SIDE OF BED, BED IN LOW POSITION, WHEELS LOCKED, CALL LIGHT WITHIN REACH, DENIES NEEDS AT THIS TIME.
[2019-06-14 08:00] VITALS: BP 118/85
[2019-06-14] MEDS ORDERED: GEMFIBROZIL600 MG PO (10:55)
--- NOTE | 2019-06-14 11:14 | NUR ---
Shift chart check completed.
--- NOTE | 2019-06-14 11:35 | NUR ---
Discharge instructions reviewed with patient/family. Patient receptive and verbalizes understanding. Follow-up care arranged. Written instructions given to patient/family, REINFORCED IMPORTANCE OF TRACKING DAILY WEIGHT AND REPORTING WAIT GAIN OF 5 POUNDS IN 24 HOURS TO PCP, VERSED UNDERSTANDING, IV REMOVED, LEFT VIA W/C ACCOPMPANIED BY FAMILY AND PA. CHRIS MARIN
== END 2019-06-14 11:58 | disposition home or self-care (01) | DRG 871 ==
LOC: ED 22:38 → ICCU 06-11 00:26 → EDHOLD 06-11 00:26 → 5E 06-11 00:26 → ICCU 06-11 01:20 → 5E 06-12 09:41
PROVIDERS: Counselor Professional; Emergency Medicine; Internal Medicine; ADMIT Internal Medicine
PROC: 4B02XSZ Measurement of Cardiac Pacemaker, External Approach (ICD-10-PCS; principal; 2019-06-11)
DX: A41.9 Sepsis, unspecified organism (principal); G93.41 Metabolic encephalopathy; I50.43 Acute on chronic combined systolic (congestive) and diastolic (congestive) heart failure; Z68.43 Body mass index [BMI] 50.0-59.9, adult; F33.2 Major depressive disorder, recurrent severe without psychotic features; I42.0 Dilated cardiomyopathy; I11.0 Hypertensive heart disease with heart failure; R73.9 Hyperglycemia, unspecified; E83.41 Hypermagnesemia; E80.6 Other disorders of bilirubin metabolism; M16.10 Unilateral primary osteoarthritis, unspecified hip; E66.01 Morbid (severe) obesity due to excess calories; F41.1 Generalized anxiety disorder; J44.9 Chronic obstructive pulmonary disease, unspecified; Z95.0 Presence of cardiac pacemaker; Z88.8 Allergy status to other drugs, medicaments and biological substances; Z79.899 Other long term (current) drug therapy; Z83.3 Family history of diabetes mellitus; Z80.9 Family history of malignant neoplasm, unspecified; Z84.1 Family history of disorders of kidney and ureter; Z79.82 Long term (current) use of aspirin

== ENCOUNTER 2019-07-21 09:34 | Emergency (ER) | payer OTHER ==
[~2019-07-21] VITALS: Ht 165.1 cm; Wt 154.2 kg
[~2019-07-21 09:34] MED LIST changes: +CRESTOR40 M1 PO; +GEMFIBROZIL600 MG PO; +LOSARTAN POTAS100 M1 PO; +NAPROXEN500 MG PO; +VASCEPA1 G1 PO; +VIT D PO; +ZYRTEC10 M3 PO
[2019-07-21 10:24] LABS: BASO # 0.1 10*3/uL (0.0-0.1); BASO % 0.6 % (0.0-1.0); HEMATOCRIT 47.2 % (42.0-52.0); HEMOGLOBIN 15.3 g/dl (14.0-18.0); LYMPH # 2.5 10*3/uL (1.3-4.4); LYMPH % 16.9 % (27.0-41.0); MEAN CELL VOLUME 91.8 fl (80.0-94.0); MEAN CORPUSCULAR HGB 29.8 pg (27.0-31.0); MEAN CORPUSCULAR HGB CONC 32.4 g/dl (33.0-37.0); MEAN PLATELET VOLUME 9.7 fl (9.6-12.3); MONO # 1.4 10*3/uL (0.1-1.0); MONO % 9.7 % (3.0-9.0); NEUT # 9.7 10*3/uL (2.3-7.9); NEUT % 65.4 % (47.0-73.0); PLATELET COUNT AUTOMATED 219 10*3/uL (130-400); RED BLOOD COUNT 5.14 10*6/uL (4.50-5.90); RED CELL DISTRI WIDTH 15.3 % (0-14.5); WHITE BLOOD COUNT 14.8 10*3/uL (4.8-10.8)
[2019-07-21 10:34] LABS: ACT PARTIAL THROMBO TIME 26.1 SECONDS (20.0-32.1)
[2019-07-21 10:40] LABS: ALBUMIN 3.8 gm/dl (3.1-4.5); ALKALINE PHOSPHATASE 94 U/L (45-117); BUN 26 mg/dl (7-24); CHLORIDE 107 mmol/L (98-107); CREATININE 1.18 mg/dL (0.70-1.30); POTASSIUM 4.3 mmol/L (3.5-5.1); SGOT/AST 15 IU/L (3-35); SGPT/ALT 15 U/L (12-78); SODIUM 139 mmol/L (136-145); TOTAL PROTEIN 7.5 gm/dL (6.4-8.2); TROPONIN I 0.025 ng/ml (<0.045)
[2019-07-21] MEDS ORDERED: BUMETANIDE1 MG PO (11:48)
== END 2019-07-21 11:54 | disposition home or self-care (01) ==
LOC: ED 09:34
PROVIDERS: Family Medicine
DX: I50.9 Heart failure, unspecified (principal); I11.0 Hypertensive heart disease with heart failure; M19.90 Unspecified osteoarthritis, unspecified site; J44.9 Chronic obstructive pulmonary disease, unspecified; E66.01 Morbid (severe) obesity due to excess calories; Z88.8 Allergy status to other drugs, medicaments and biological substances; Z79.899 Other long term (current) drug therapy

== ENCOUNTER 2019-07-24 03:45 | Inpatient (IN) | payer OTHER ==
[2019-07-24] VITALS (7 sets, daily range): BP systolic 89–142; BP diastolic 52–83
[~2019-07-24] VITALS: Ht 165.1 cm; Wt 152.9 kg
[2019-07-24 04:13] LABS: BASO # 0.1 10*3/uL (0.0-0.1); BASO % 0.8 % (0.0-1.0); EOS # 1.2 10*3/uL (0.0-0.4); EOS % 8.7 % (1.0-4.0); HEMATOCRIT 47.1 % (42.0-52.0); LYMPH # 2.7 10*3/uL (1.3-4.4); MEAN CORPUSCULAR HGB 29.5 pg (27.0-31.0); MEAN CORPUSCULAR HGB CONC 32.1 g/dl (33.0-37.0); MEAN PLATELET VOLUME 10.1 fl (9.6-12.3); MONO # 1.4 10*3/uL (0.1-1.0); MONO % 9.7 % (3.0-9.0); NEUT # 8.7 10*3/uL (2.3-7.9); NEUT % 61.3 % (47.0-73.0); PLATELET COUNT AUTOMATED 241 10*3/uL (130-400); RED BLOOD COUNT 5.12 10*6/uL (4.50-5.90); RED CELL DISTRI WIDTH 15.2 % (0-14.5); WHITE BLOOD COUNT 14.2 10*3/uL (4.8-10.8)
[2019-07-24 04:25] LABS: ACT PARTIAL THROMBO TIME 25.6 SECONDS (20.0-32.1)
[2019-07-24 04:30] LABS: ALBUMIN 3.7 gm/dl (3.1-4.5); ALKALINE PHOSPHATASE 93 U/L (45-117); BUN 33 mg/dl (7-24); CHLORIDE 102 mmol/L (98-107); CREATININE 1.29 mg/dL (0.70-1.30); POTASSIUM 4.3 mmol/L (3.5-5.1); SGOT/AST 43 IU/L (3-35); SGPT/ALT 22 U/L (12-78); SODIUM 138 mmol/L (136-145); TOTAL PROTEIN 7.8 gm/dL (6.4-8.2)
[2019-07-24 04:37] LABS: TROPONIN I 0.024 ng/ml (<0.045)
[2019-07-24] MEDS ORDERED: GEMFIBROZIL600 MG PO (08:24)
[2019-07-24 09:04] LABS: ABG BASE EXCESS 2.7 mmol/L (-2.0-2.0); ARTERIAL BLOOD GAS PH 7.343 (7.35-7.45)
[2019-07-24 14:14] LABS: ABG BASE EXCESS 2.7 mmol/L (-2.0-2.0); ARTERIAL BLOOD GAS PH 7.382 (7.35-7.45)
[2019-07-25] VITALS: BP 122/70
[2019-07-25 07:00] LABS: BASO # 0.1 10*3/uL (0.0-0.1); BASO % 0.6 % (0.0-1.0); EOS # 0.9 10*3/uL (0.0-0.4); EOS % 7.1 % (1.0-4.0); LYMPH % 15.7 % (27.0-41.0); MEAN CELL VOLUME 92.7 fl (80.0-94.0); MEAN CORPUSCULAR HGB 29.3 pg (27.0-31.0); MEAN CORPUSCULAR HGB CONC 31.7 g/dl (33.0-37.0); MEAN PLATELET VOLUME 10.2 fl (9.6-12.3); MONO # 1.1 10*3/uL (0.1-1.0); MONO % 8.7 % (3.0-9.0); NEUT # 8.4 10*3/uL (2.3-7.9); NEUT % 67.5 % (47.0-73.0); PLATELET COUNT AUTOMATED 222 10*3/uL (130-400); RED BLOOD COUNT 5.18 10*6/uL (4.50-5.90); RED CELL DISTRI WIDTH 15.1 % (0-14.5); WHITE BLOOD COUNT 12.4 10*3/uL (4.8-10.8)
[2019-07-25 07:30] LABS: CHLORIDE 102 mmol/L (98-107); POTASSIUM 4.3 mmol/L (3.5-5.1); SODIUM 139 mmol/L (136-145)
[2019-07-25 07:39] LABS: ALBUMIN 3.7 gm/dl (3.1-4.5); ALKALINE PHOSPHATASE 83 U/L (45-117); BUN 25 mg/dl (7-24); CREATININE 1.07 mg/dL (0.70-1.30); PHOSPHOROUS 3.6 mg/dL (2.5-4.9); SGOT/AST 28 IU/L (3-35); SGPT/ALT 17 U/L (12-78); TOTAL PROTEIN 7.4 gm/dL (6.4-8.2)
[2019-07-25 12:00] VITALS: BP 103/73
[2019-07-25 16:00] VITALS: BP 118/75
[2019-07-25 18:00] VITALS: BP 118/75
[2019-07-25 20:00] VITALS: BP 117/78
[2019-07-26] VITALS: BP 100/72
[2019-07-26 07:35] LABS: BASO # 0.1 10*3/uL (0.0-0.1); BASO % 0.6 % (0.0-1.0); EOS # 0.7 10*3/uL (0.0-0.4); EOS % 5.7 % (1.0-4.0); LYMPH # 2.2 10*3/uL (1.3-4.4); LYMPH % 18.1 % (27.0-41.0); MEAN CELL VOLUME 93.5 fl (80.0-94.0); MEAN CORPUSCULAR HGB 29.3 pg (27.0-31.0); MEAN CORPUSCULAR HGB CONC 31.3 g/dl (33.0-37.0); MEAN PLATELET VOLUME 9.8 fl (9.6-12.3); MONO # 1.2 10*3/uL (0.1-1.0); MONO % 10.1 % (3.0-9.0); NEUT # 7.8 10*3/uL (2.3-7.9); NEUT % 64.9 % (47.0-73.0); PLATELET COUNT AUTOMATED 205 10*3/uL (130-400); RED BLOOD COUNT 4.92 10*6/uL (4.50-5.90); RED CELL DISTRI WIDTH 14.9 % (0-14.5); WHITE BLOOD COUNT 12.1 10*3/uL (4.8-10.8)
[2019-07-26 08:00] VITALS: BP 109/66
[2019-07-26 10:37] LABS: BUN 28 mg/dl (7-24); CREATININE 1.08 mg/dL (0.70-1.30)
[2019-07-26 10:38] LABS: SODIUM 138 mmol/L (136-145)
[2019-07-26 10:39] LABS: CHLORIDE 102 mmol/L (98-107)
[2019-07-26 12:00] VITALS: BP 103/79
[2019-07-26] MEDS ORDERED: VITAMIN D22000 UNIT PO (13:30)
== END 2019-07-26 14:20 | disposition home or self-care (01) | DRG 154 ==
LOC: ED 03:45 → 4E 07:00 → EDHOLD 07:00 → 4E 07:32
PROVIDERS: Emergency Medicine; Family Medicine; Internal Medicine Critical Care Medicine; Registered Nurse; ADMIT Family Medicine
PROC: 0HQ3XZZ Repair Left Ear Skin, External Approach (ICD-10-PCS; principal; 2019-07-24)
PROC: 5A09357 Assistance with Respiratory Ventilation, Less than 24 Consecutive Hours, Continuous Positive Airway Pressure (ICD-10-PCS; principal; 2019-07-24)
DX: S01.312A Laceration without foreign body of left ear, initial encounter (principal); J96.21 Acute and chronic respiratory failure with hypoxia; J96.22 Acute and chronic respiratory failure with hypercapnia; I50.23 Acute on chronic systolic (congestive) heart failure; E44.1 Mild protein-calorie malnutrition; E66.2 Morbid (severe) obesity with alveolar hypoventilation; I42.9 Cardiomyopathy, unspecified; Z68.43 Body mass index [BMI] 50.0-59.9, adult; I11.0 Hypertensive heart disease with heart failure; R55 Syncope and collapse; I95.9 Hypotension, unspecified; W19.XXXA Unspecified fall, initial encounter; F41.1 Generalized anxiety disorder; J44.9 Chronic obstructive pulmonary disease, unspecified; E78.5 Hyperlipidemia, unspecified; I25.10 Atherosclerotic heart disease of native coronary artery without angina pectoris; Y93.89 Activity, other specified; Y92.89 Other specified places as the place of occurrence of the external cause; Y99.8 Other external cause status; Z95.810 Presence of automatic (implantable) cardiac defibrillator; Z88.8 Allergy status to other drugs, medicaments and biological substances; Z91.040 Latex allergy status; Z79.82 Long term (current) use of aspirin; Z79.899 Other long term (current) drug therapy; Z83.3 Family history of diabetes mellitus; Z80.9 Family history of malignant neoplasm, unspecified; Z84.1 Family history of disorders of kidney and ureter

== ENCOUNTER 2020-01-30 08:09 | Inpatient (IN) | payer OTHER ==
[~2020-01-30] VITALS: Ht 177.8 cm; Wt 163.3 kg
[~2020-01-30 08:09] MED LIST changes: +VITAMIN D22000 UNIT PO
[2020-01-30 08:14] VITALS: BP 96/62
[2020-01-30 09:30] LABS: BASO # 0.1 10*3/uL (0.0-0.1); BASO % 0.9 % (0.0-1.0); EOS # 0.5 10*3/uL (0.0-0.4); EOS % 5.2 % (1.0-4.0); HEMATOCRIT 44.3 % (42.0-52.0); LYMPH # 1.4 10*3/uL (1.3-4.4); LYMPH % 14.8 % (27.0-41.0); MEAN CELL VOLUME 93.7 fl (80.0-94.0); MEAN CORPUSCULAR HGB 28.5 pg (27.0-31.0); MEAN CORPUSCULAR HGB CONC 30.5 g/dl (33.0-37.0); MEAN PLATELET VOLUME 9.8 fl (9.6-12.3); MONO # 1.2 10*3/uL (0.1-1.0); MONO % 13.1 % (3.0-9.0); NEUT % 65.6 % (47.0-73.0); PLATELET COUNT AUTOMATED 218 10*3/uL (130-400); RED BLOOD COUNT 4.73 10*6/uL (4.50-5.90); RED CELL DISTRI WIDTH 18.2 % (0-14.5); WHITE BLOOD COUNT 9.2 10*3/uL (4.8-10.8)
[2020-01-30 09:42] LABS: INTERNATIONAL NORM RATIO 1.2 (2.0-3.5)
[2020-01-30 09:48] LABS: ALBUMIN 2.4 gm/dl (3.1-4.5); ALKALINE PHOSPHATASE 156 U/L (45-117); BUN 40 mg/dl (7-24); CHLORIDE 111 mmol/L (98-107); CREATININE 1.62 mg/dL (0.70-1.30); POTASSIUM 4.6 mmol/L (3.5-5.1); SGOT/AST 15 IU/L (3-35); SGPT/ALT 8 U/L (12-78); SODIUM 139 mmol/L (136-145); TOTAL PROTEIN 6.2 gm/dL (6.4-8.2)
[2020-01-30 09:54] LABS: TROPONIN I < 0.015 ng/ml (<0.045)
[2020-01-30 11:45] VITALS: BP 86/49
--- NOTE | 2020-01-30 11:45 | NUR ---
Time: 1144 A 49 year old MALE admitted to 5E under services of BERYL MCCLELLAND DO. Pt. arrived via ambulatory from ER. Chief complaint: ONGOING INFECTION OF LEFT LOWER LEG . KIZZY LONDON
--- NOTE | 2020-01-30 12:30 | NUR ---
IN TO ASSESS PT'S WOUNDS. PT ALLOWED NURSE TO MEASURE ALL WOUNDS BUT REFUSED MEASURING OF HIS SCOTUM, GROIN, AND COCCYX. WILL CONTINUE TO MONITOR.
[2020-01-30] MEDS ORDERED: DIGOX125 MCG PO (13:06)
[2020-01-30] MEDS ORDERED: TRAZODONE100 MG PO (13:09)
[2020-01-30] MEDS ORDERED: GOOD NEIGHBOR P20 MG PO (13:10)
[2020-01-30] MEDS ORDERED: CYMBALTA60 MG PO (13:11)
--- NOTE | 2020-01-30 14:00 | NUR ---
DR. LOWE AWARE OF CONSULT.
[2020-01-30 16:00] VITALS: BP 98/73
--- NOTE | 2020-01-30 17:10 | NUR ---
PODIATRY MADE AWARE OF CONSULT.
[2020-01-30 20:00] VITALS: BP 102/62
--- NOTE | 2020-01-30 20:37 | NUR ---
PATIENT MEDICATED WITH TYLENOL FOR C/O HEADACHE. WILL MONITOR
--- NOTE | 2020-01-30 23:31 | NUR ---
CALLED LAB TO SEE IF PODIATRY RESIDENT SENT WOUND CULTURE SPECIMEN, DAYLIGHT NURSE STATED THAT HE WAS GOING TO COLLECT WHEN HE WRAPPED PATIENTS LEGS. LAB STATES NO SPECIMEN WAS SENT. WILL WAIT TO COLLECT ONCE PODIATRY IS AVAILABLE TO DO DRESSING CAHNGES AGAIN
[2020-01-31] VITALS: BP 111/72
[2020-01-31 06:17] LABS: BASO # 0.1 10*3/uL (0.0-0.1); BASO % 1.1 % (0.0-1.0); EOS # 0.5 10*3/uL (0.0-0.4); EOS % 5.6 % (1.0-4.0); HEMATOCRIT 46.9 % (42.0-52.0); LYMPH % 11.2 % (27.0-41.0); MEAN CORPUSCULAR HGB 28.7 pg (27.0-31.0); MEAN CORPUSCULAR HGB CONC 30.5 g/dl (33.0-37.0); MEAN PLATELET VOLUME 9.9 fl (9.6-12.3); MONO # 0.9 10*3/uL (0.1-1.0); MONO % 9.8 % (3.0-9.0); NEUT # 6.6 10*3/uL (2.3-7.9); PLATELET COUNT AUTOMATED 194 10*3/uL (130-400); RED BLOOD COUNT 4.99 10*6/uL (4.50-5.90); RED CELL DISTRI WIDTH 18.3 % (0-14.5); WHITE BLOOD COUNT 9.1 10*3/uL (4.8-10.8)
[2020-01-31 06:30] LABS: ALBUMIN 2.6 gm/dl (3.1-4.5); CREATININE 1.77 mg/dL (0.70-1.30); POTASSIUM 4.7 mmol/L (3.5-5.1)
[2020-01-31 06:38] LABS: FREE T4 0.92 ng/dl (0.76-1.46); THYROID STIM HORMONE (HS) 6.71 uIU/ml (0.358-4.75); TOTAL PROTEIN 6.7 gm/dL (6.4-8.2)
[2020-01-31 07:02] LABS: ACT PARTIAL THROMBO TIME 32.5 SECONDS (20.0-32.1); INTERNATIONAL NORM RATIO 1.2 (2.0-3.5)
[2020-01-31 07:20] LABS: BILIRUBIN Negative (Negative); BLOOD 1+ (Negative); CLARITY Clear (Clear); COLOR Yellow (Yellow); GLUCOSE Negative (Negative); KETONE Negative (Negative); LEUKO ESTERASE 2+ (Negative); NITRITE Negative (Negative)
[2020-01-31 07:42] LABS: BACTERIA 1+
[2020-01-31 08:00] VITALS: BP 90/59
[2020-01-31 12:00] VITALS: BP 98/67
[2020-01-31 16:00] VITALS: BP 100/65
--- NOTE | 2020-01-31 17:04 | NUR ---
24 HR chart check completed.
--- NOTE | 2020-01-31 17:04 | NUR ---
PATIENT RESTING IN BED. NO COMPLAINTS AT THIS TIME. PODIATRY WAS IN EARLIER TODAY AND CHANGED DRESSINGS TO BLLE. DRESSINGS DRY AND INTACT. PATIENT DENIES ANY PAIN AT THIS TIME. VOICES NO CONCERNS. CALL LIGHT IN REACH.
[2020-01-31 20:00] VITALS: BP 103/71
--- NOTE | 2020-01-31 20:00 | NUR ---
PATIENT VOICED NO COMPLAINTS. NO OVERT DISTRESS NOTED. RESP ARE EASY AND REGULAR. BED IS LOCKED IN LOWEST POSITION, CALL LIGHT WITHIN REACH
[2020-02-01] VITALS: BP 98/59
--- NOTE | 2020-02-01 03:54 | NUR ---
PATIENT IN RESTROOM, VOICED NO COMPLAINTS
[2020-02-01 06:47] LABS: CREATININE 1.56 mg/dL (0.70-1.30); POTASSIUM 4.7 mmol/L (3.5-5.1)
--- NOTE | 2020-02-01 07:40 | NUR ---
PATIENT RESTING IN BED. VOICES NO CONCERNS. DENIES ANY PAIN. REMINDED PATIENT OF ECHO AND VENOUS AND ARTERIAL US TODAY. PATIENT STATES UNDERSTANDING. ASSESSMENT COMPLETE. BLLE DRESSING DRY AND INTACT. RESPS EASY AND REGULAR. CALL LIGHT IN REACH.
--- NOTE | 2020-02-01 07:57 | NUR ---
PATIENT GETTING ECHO DONE AT THIS TIME.
--- NOTE | 2020-02-01 07:59 | NUR ---
Shift chart check completed.
--- NOTE | 2020-02-01 08:01 | NUR ---
PHYSICAL THERAPY Screen received admitted with acute CHF and BLE cellulitis, please consult PT if pt has a decline in functional status below baseline thank you Kamala Lamar PT
[2020-02-01 09:00] VITALS: BP 114/56
--- NOTE | 2020-02-01 10:57 | NUR ---
JOAN GAY AWARE OF CONSULT.
[2020-02-01 12:00] VITALS: BP 118/90
--- NOTE | 2020-02-01 12:01 | NUR ---
CAR DETAILER FAXED REFERRAL TO [facility]. WILL NEED FACE TO FACE.
--- NOTE | 2020-02-01 12:28 | NUR ---
Promotions Specialist in to talk to patient. Patient states lives at HOME with AND SON. There are 13 steps in the home. Physician: FRANK Pharmacy: [facility] Home health services: NONE AT THIS TIME Patient's level of ADLs: MINIMAL ASSIST Patient has working utilities: YES DME: VEENA Follow-up physician's appointment after d/c: WILL BE MADE BY HOSPITALIST NURSE DIRECTOR ON DISCHARGE Does patient want to access PORTAL?: NO Discharge plan PT LIVES AT HOME WITH HIS . STATES SHE HELPS HIM WITH SOME ADLS SINCE HE FELL AND HURT LEG. PT IS REQUESTING HOME HEALTH AND WHEN GIVEN LIST OF FACILITIES, PICKED [facility]. REFERRAL HAS BEEN SENT. WILL CONTNUE TO FOLLOW. STATES HE WILL HAVE A RIDE HOME ON DISCHARGE.. CLEMENTINE MTZ
--- NOTE | 2020-02-01 15:25 | NUR ---
PATIENT OFF THE FLOOR FOR VENOUS AND ARTERIAL ULTRASOUNDS AT THIS TIME.
--- NOTE | 2020-02-01 16:07 | NUR ---
Nursing screen received and chart reviewed. Patient admitted with cellulitis BLEs. Patient lives with his who occasionally assists with ADLs when needed. IF patient should have a decline from baseline ADLs then refer to OT for further assessment. Thank you. Yeni Anne OTr/loretta
--- NOTE | 2020-02-01 16:14 | NUR ---
PATIENT BACK TO FLOOR FROM ULTRASOUND.
--- NOTE | 2020-02-01 16:15 | NUR ---
NOTIFIED THEY WERE ONLY ABLE TO DO VENOUS ULTRASOUND OF RIGHT LEG D/T PATIENT HAVING A PANIC ATTACK. IF THEY STILL WANT VENOUS ULTRASOUND OF THE LEFT LEG IT WILL HAVE TO BE REODERED AND THEY CAN DO IT TOMORROW BUT THEY SUGGEST PATIENT GET SOMETHING TO HELP CALM HIM DOWN BEFORE GOING.
[2020-02-01 20:00] VITALS: BP 107/62
--- NOTE | 2020-02-01 21:37 | NUR ---
PATIENT MEDICATED WITH TYLENOL FOR C/O BLE PAIN 07/06. WILL MONITOR
[2020-02-02] VITALS: BP 90/80
[2020-02-02 06:56] LABS: BASO # 0.1 10*3/uL (0.0-0.1); BASO % 1.2 % (0.0-1.0); EOS # 0.4 10*3/uL (0.0-0.4); EOS % 4.3 % (1.0-4.0); HEMATOCRIT 47.8 % (42.0-52.0); LYMPH # 1.4 10*3/uL (1.3-4.4); LYMPH % 16.4 % (27.0-41.0); MEAN CELL VOLUME 94.7 fl (80.0-94.0); MEAN CORPUSCULAR HGB 28.9 pg (27.0-31.0); MEAN CORPUSCULAR HGB CONC 30.5 g/dl (33.0-37.0); MEAN PLATELET VOLUME 10.2 fl (9.6-12.3); MONO # 0.8 10*3/uL (0.1-1.0); MONO % 9.3 % (3.0-9.0); NEUT # 5.9 10*3/uL (2.3-7.9); NEUT % 68.1 % (47.0-73.0); NUCLEATED RED BLOOD CELL 0.1 10*3/uL (0.0-0.0); NUCLEATED RED BLOOD CELL 0.7 % (0.0-0.0); PLATELET COUNT AUTOMATED 211 10*3/uL (130-400); RED BLOOD COUNT 5.05 10*6/uL (4.50-5.90); RED CELL DISTRI WIDTH 18.4 % (0-14.5); WHITE BLOOD COUNT 8.6 10*3/uL (4.8-10.8)
[2020-02-02 06:58] LABS: BUN 40 mg/dl (7-24); CHLORIDE 110 mmol/L (98-107); CREATININE 1.46 mg/dL (0.70-1.30); POTASSIUM 4.7 mmol/L (3.5-5.1); SODIUM 136 mmol/L (136-145)
[2020-02-02 09:00] VITALS: BP 132/91
--- NOTE | 2020-02-02 11:49 | NUR ---
PT CAN BE DISCHARGED TO HOME WHEN MEDICALLY STABLE. REFERRAL HAS BEEN SENT TO [facility]. WILL CONTINUE TO FOLLOW.
[2020-02-02 12:00] VITALS: BP 96/70
[2020-02-02 16:00] VITALS: BP 106/65
--- NOTE | 2020-02-02 20:00 | NUR ---
AMBULTATED TO BR & BACK. GAIT SLOW BUT STEADY. AAOX3; LUNGS DIMINISHED. PT. VERY OBESE. STATES BM THIS EVENING. BILATERAL LOWER EXTREMITIES WRAPPED BY PODIATRY TODAY. PT. VOICES NO C/O. CALL LIGHT WITHIN REACH.
[2020-02-02 20:05] VITALS: BP 100/69
--- NOTE | 2020-02-02 22:00 | NUR ---
TOOK MEDS WITHOUT DIFFICULTY; VOICES NO C/O. CALL LIGHT WITHIN REACH.
[2020-02-03] VITALS: BP 103/71
[2020-02-03 06:25] LABS: BASO # 0.1 10*3/uL (0.0-0.1); BASO % 1.3 % (0.0-1.0); EOS # 0.3 10*3/uL (0.0-0.4); EOS % 3.4 % (1.0-4.0); LYMPH # 1.3 10*3/uL (1.3-4.4); MEAN CELL VOLUME 94.5 fl (80.0-94.0); MEAN CORPUSCULAR HGB 28.5 pg (27.0-31.0); MEAN CORPUSCULAR HGB CONC 30.2 g/dl (33.0-37.0); MEAN PLATELET VOLUME 9.9 fl (9.6-12.3); MONO # 1.1 10*3/uL (0.1-1.0); MONO % 11.4 % (3.0-9.0); NEUT # 6.5 10*3/uL (2.3-7.9); NEUT % 68.6 % (47.0-73.0); NUCLEATED RED BLOOD CELL 0.4 % (0.0-0.0); PLATELET COUNT AUTOMATED 208 10*3/uL (130-400); RED BLOOD COUNT 5.08 10*6/uL (4.50-5.90); RED CELL DISTRI WIDTH 18.6 % (0-14.5); WHITE BLOOD COUNT 9.5 10*3/uL (4.8-10.8)
[2020-02-03 06:53] LABS: CHLORIDE 109 mmol/L (98-107); POTASSIUM 4.8 mmol/L (3.5-5.1); SODIUM 137 mmol/L (136-145)
[2020-02-03 07:04] LABS: ALBUMIN 2.6 gm/dl (3.1-4.5); ALKALINE PHOSPHATASE 148 U/L (45-117); BUN 39 mg/dl (7-24); CREATININE 1.45 mg/dL (0.70-1.30); SGOT/AST 241 IU/L (3-35); SGPT/ALT 80 U/L (12-78); TOTAL PROTEIN 6.7 gm/dL (6.4-8.2)
--- NOTE | 2020-02-03 07:49 | NUR ---
[facility] CALLED IN REGARDING DIET ORDER. PATIENT TO BE NPO FOR SCHEDULED U/S OF LIVER.
[2020-02-03 08:00] VITALS: BP 119/82
--- NOTE | 2020-02-03 10:59 | NUR ---
PT WILL RETURN HOME WHEN MEDICALLY STABLE WITH [facility]. REFERRAL HAS BEEN SENT.
[2020-02-03] MEDS ORDERED: COZAAR25 M1 PO (11:54)
[2020-02-03 12:00] VITALS: BP 121/83
[2020-02-03] MEDS ORDERED: VIBRAMYCIN100 MG PO (14:01)
--- NOTE | 2020-02-03 14:21 | NUR ---
LUMBER PLANER NOTIFIED [facility] OF PATIENT BEING DISCHARGED.
--- NOTE | 2020-02-03 14:51 | NUR ---
PATIENT EAGER TO LEAVE. PT REFUSING DISCHARGE PHOTOS.
--- NOTE | 2020-02-03 15:25 | NUR ---
DISCHARGE INSTRUCTIONS REVIEWED WITH PATIENT. PATIENT VOICED UNDERSTANDING.
--- NOTE | 2020-02-03 15:25 | NUR ---
Discharge instructions reviewed with patient/family. Patient receptive and verbalizes understanding. Follow-up care arranged. Written instructions given to patient/family. NADIRA DANIEL.
== END 2020-02-03 15:40 | disposition home or self-care (01) | DRG 602 ==
LOC: ED 08:09 → EDHOLD 10:32 → 5E 10:32
PROVIDERS: Emergency Medicine; Internal Medicine; Registered Nurse; ADMIT Student in an Organized Health Care Education/Training Program; ATTEND Student in an Organized Health Care Education/Training Program
DX: L03.116 Cellulitis of left lower limb (principal); I50.23 Acute on chronic systolic (congestive) heart failure; N17.0 Acute kidney failure with tubular necrosis; E43 Unspecified severe protein-calorie malnutrition; I42.8 Other cardiomyopathies; E66.2 Morbid (severe) obesity with alveolar hypoventilation; I13.0 Hypertensive heart and chronic kidney disease with heart failure and stage 1 through stage 4 chronic kidney disease, or unspecified chronic kidney disease; Z68.43 Body mass index [BMI] 50.0-59.9, adult; S30.811A Abrasion of abdominal wall, initial encounter; M16.10 Unilateral primary osteoarthritis, unspecified hip; J44.9 Chronic obstructive pulmonary disease, unspecified; F41.1 Generalized anxiety disorder; B37.2 Candidiasis of skin and nail; N18.9 Chronic kidney disease, unspecified; D64.9 Anemia, unspecified; E87.8 Other disorders of electrolyte and fluid balance, not elsewhere classified; I11.0 Hypertensive heart disease with heart failure; R74.8 Abnormal levels of other serum enzymes; R79.89 Other specified abnormal findings of blood chemistry; I87.2 Venous insufficiency (chronic) (peripheral); Z88.8 Allergy status to other drugs, medicaments and biological substances; Z91.040 Latex allergy status; Z95.0 Presence of cardiac pacemaker; Z87.442 Personal history of urinary calculi; Z83.3 Family history of diabetes mellitus; Z80.8 Family history of malignant neoplasm of other organs or systems; W18.39XA Other fall on same level, initial encounter; Y93.89 Activity, other specified; Y92.89 Other specified places as the place of occurrence of the external cause; Y99.8 Other external cause status

== ENCOUNTER 2020-06-17 17:29 | Emergency (ER) | payer OTHER ==
[~2020-06-17] VITALS: Wt 174.6 kg
[~2020-06-17 17:29] MED LIST changes: +COZAAR25 M1 PO; +CYMBALTA60 MG PO; +DIGOX125 MCG PO; +GOOD NEIGHBOR P20 MG PO; +TRAZODONE100 MG PO; +VIBRAMYCIN100 MG PO
== END 2020-06-17 19:58 ==
LOC: ED 17:40
DX: I46.9 Cardiac arrest, cause unspecified (principal); F41.9 Anxiety disorder, unspecified; F32.9 Major depressive disorder, single episode, unspecified; I11.0 Hypertensive heart disease with heart failure; I50.9 Heart failure, unspecified; E66.01 Morbid (severe) obesity due to excess calories; Z90.89 Acquired absence of other organs; Z87.891 Personal history of nicotine dependence; Z95.0 Presence of cardiac pacemaker